=== PATIENT | male | born 1995 | race Caucasian/White ===

== ENCOUNTER 2018-09-21 08:12 | Emergency (ER) | payer BC ==
[~2018-09-21] VITALS: Ht 185.4 cm; Wt 113.4 kg
[2018-09-21 08:16] VITALS: BP 123/67
[2018-09-21] MEDS ORDERED: AMOX875T PO (08:26)
[2018-09-21] MEDS ORDERED: PRED50TA PO (08:26)
--- NOTE | 2018-09-21 08:26 | PHYS DOC ---
Past Medical History Past Medical History: No Pertinent History Past Surgical History: No Surgical History Additional Information: 3-4 cigarettes daily Alcohol Use: None Drug Use: Marijuana Adult General Chief Complaint Chief Complaint: GENERALIZED BODY ACHES HPI HPI Patient is a 22 year old male who presents with sore throat, body aches, subjective fevers, symptoms began 3 days ago. Patient denies any cough or congestion. He states his tonsils are swollen and have pus pockets. Review of Systems Review of Systems Constitutional: Denies fever or chills [] Eyes: Denies change in visual acuity, redness, or eye pain [] HENT: Reports sore throat, enlarged tonsils with possible pus. Denies nasal congestion Respiratory: Denies cough or shortness of breath [] Cardiovascular: No additional information not addressed in HPI [] GI: Denies abdominal pain, nausea, vomiting, bloody stools or diarrhea [] : Denies dysuria or hematuria [] Musculoskeletal: Denies back pain or joint pain [] Integument: Denies rash or skin lesions [] Neurologic: Denies headache, focal weakness or sensory changes [] All other systems were reviewed and found to be within normal limits, except as documented in this note. Physical Exam Physical Exam Constitutional: Well developed, well nourished, no acute distress, non-toxic appearance. [] HENT: Normocephalic, atraumatic, bilateral external ears normal, oropharynx moist, no oral exudates, nose normal. [] +2 tonsils with mild erythema, midline, mild exudate bilaterally. Airway is open. +2 anterior cervical adenopathy Eyes: PERRLA, EOMI, conjunctiva normal, no discharge. [] Neck: Normal range of motion, no tenderness, supple, no stridor. [] Cardiovascular:Heart rate regular rhythm, no murmur [] Lungs & Thorax: Bilateral breath sounds clear to auscultation [] Abdomen: Bowel sounds normal, soft, no tenderness, no masses, no pulsatile masses. [] Skin: Warm, dry, no erythema, no rash. [] Back: No tenderness, no CVA tenderness. [] Extremities: No tenderness, no cyanosis, no clubbing, ROM intact, no edema. [] Neurologic: Alert and oriented X 3, normal motor function, normal sensory function, no focal deficits noted. [] Psychologic: Affect normal, judgement normal, mood normal. [] EKG EKG [] Radiology/Procedures Radiology/Procedures [] Course & Med Decision Making Course & Med Decision Making Pertinent Labs and Imaging studies reviewed. (See chart for details) Patient has acute tonsillitis. Temperature 99.2. Discharged with amoxicillin and prednisone and instructed to take Tylenol Motrin for pain or fever. Saltwater gargles recommended. Provided return precautions, discharged in stable condition. Dragon Disclaimer Dragon Disclaimer This electronic medical record was generated, in whole or in part, using a voice recognition dictation system. Departure Departure Impression: Primary Impression: Acute tonsillitis Additional Impression: Fever Disposition: HOME, SELF-CARE Condition: STABLE Referrals: ZANE THOMAS MD follow up in 1-2 weeks Patient Instructions: Fever, Adult, Tonsillitis Additional Instructions: You have acute tonsillitis. Ensure you complete your antibiotics. Take Tylenol every 4 hours and Motrin 6 hours as needed for febrile pain. Use saltwater gargles as needed for sore throat. Follow-up with your doctor in 1-2 weeks, come back to the ED at any point symptoms worsen. Scripts Prednisone (PREDNISONE) 50 Mg Tablet 1 TAB PO DAILY, #5 TAB Prov: STARLA COX APRN 09/21/18 Amoxicillin (AMOXICILLIN) 875 Mg Tablet 1 TAB PO BID, #20 TAB Prov: STARLA COX APRN 09/21/18 Problem Qualifiers Primary Impression: Acute tonsillitis Pharyngitis/tonsillitis etiology: unspecified etiology Qualified Codes: J03.90 - Acute tonsillitis, unspecified Additional Impression: Fever Fever type: unspecified Qualified Codes: R50.9 - Fever, unspecified STARLA COX APRN Sep 21, 2018 08:26
== END 2018-09-21 08:36 | disposition home or self-care (01) ==
LOC: ER 08:12
DX: J03.90 Acute tonsillitis, unspecified (principal); R50.9 Fever, unspecified; M79.18 Myalgia, other site; F17.210 Nicotine dependence, cigarettes, uncomplicated
CPT/HCPCS: 99283

== ENCOUNTER 2019-03-14 16:37 | Emergency (ER) | payer BC ==
[~2019-03-14] VITALS: Ht 185.4 cm; Wt 108.9 kg
[~2019-03-14 16:37] MED LIST: AMOX875T PO; PRED50TA PO
[2019-03-14] MEDS ORDERED: IV NORMAL SALINE 1000ML BAG 1,000 ML IV ONE (17:00)
--- NOTE | 2019-03-14 17:02 | PHYS DOC ---
Past Medical History Past Medical History: No Pertinent History (STARLA COX APRN) Past Surgical History: No Surgical History (STARLA COX APRN) Alcohol Use: None Drug Use: Marijuana (STARLA COX APRN) Adult General Chief Complaint Chief Complaint: ABDOMINAL PAIN HPI HPI Patient is a 23 year old male with no significant medical history who presents to the ED today complaining of a sharp 4 out of 10 epigastric abdominal pain radiating to the right upper quadrant with nausea vomiting and diarrhea that began yesterday. Patient states that symptoms are worse after eating. Denies anything specifically relieving the pain. (STARLA COX APRN) Review of Systems Review of Systems Constitutional: Denies fever or chills [] Eyes: Denies change in visual acuity, redness, or eye pain [] HENT: Denies nasal congestion or sore throat [] Respiratory: Denies cough or shortness of breath [] Cardiovascular: No additional information not addressed in HPI [] GI: Reports right upper quadrant abdominal pain with nausea vomiting and diarrhea : Denies dysuria or hematuria [] Musculoskeletal: Denies back pain or joint pain [] Integument: Denies rash or skin lesions [] Neurologic: Denies headache, focal weakness or sensory changes [] All other systems were reviewed and found to be within normal limits, except as documented in this note. (STARLA COX APRN) Current Medications Current Medications Current Medications Medications (Trade) Dose Ordered Sig/Sherri Start Time Stop Time Status Last Admin Dose Admin Famotidine (Pepcid Vial) 20 mg 1X ONCE 03/14/19 17:30 03/14/19 17:31 DC 03/14/19 17:32 20 MG Ketorolac Tromethamine (Toradol 30mg Vial) 30 mg 1X ONCE 03/14/19 17:30 03/14/19 17:31 DC 03/14/19 17:32 30 MG Sodium Chloride 1,000 ml @ 1,000 mls/hr 1X ONCE 03/14/19 17:00 03/14/19 17:59 DC 03/14/19 17:32 1,000 MLS/HR (FELIZ BERTRAND DO) Allergies Allergies Allergies Coded Allergies Type Severity Reaction Last Updated Verified No Known Drug Allergies 09/21/18 No (FELIZ BERTRAND DO) Physical Exam Physical Exam Constitutional: Well developed, well nourished, no acute distress, non-toxic appearance. [] HENT: Normocephalic, atraumatic, bilateral external ears normal, oropharynx moist, no oral exudates, nose normal. [] Eyes: PERRLA, EOMI, conjunctiva normal, no discharge. [] Neck: Normal range of motion, no tenderness, supple, no stridor. [] Cardiovascular:Heart rate regular rhythm, no murmur [] Lungs & Thorax: Bilateral breath sounds clear to auscultation [] Abdomen: Bowel sounds normal, soft, slight tenderness on palpation of the epig astric region as well as the right upper quadrant with no obvious May sign, no right lower quadrant tenderness, negative psoas sign, negative obturator sign no guarding, no rebound tenderness no masses, no pulsatile masses. [] Skin: Warm, dry, no erythema, no rash. [] Back: No tenderness, no CVA tenderness. [] Extremities: No tenderness, no cyanosis, no clubbing, ROM intact, no edema. [] Neurologic: Alert and oriented X 3, normal motor function, normal sensory function, no focal deficits noted. [] Psychologic: Affect normal, judgement normal, mood normal. [] (STARLA COX APRN) Current Patient Data Vital Signs Vital Signs Date Time Temp Pulse Resp B/P (MAP) Pulse Ox O2 Delivery O2 Flow Rate FiO2 03/14/19 19:00 67 20 105/56 (72) 98 Room Air 03/14/19 16:50 98.2 98.2 (BERTRAND,FELIZ R DO) Lab Values Laboratory Tests Test 03/14/19 16:53 03/14/19 17:10 Urine Collection Type Unknown Urine Color Yellow Urine Clarity Clear Urine pH 7.5 Urine Specific [place] 1.020 Urine Protein Negative mg/dL (NEG-TRACE) Urine Glucose (UA) Negative mg/dL (NEG) Urine Ketones (Stick) Negative mg/dL (NEG) Urine Blood Negative (NEG) Urine Nitrite Negative (NEG) Urine Bilirubin Negative (NEG) Urine Urobilinogen Dipstick 0.2 mg/dL (0.2 mg/dL) Urine Leukocyte Esterase Small (NEG) Urine RBC 0 /HPF (0-2) Urine WBC 5-10 /HPF (0-4) Urine Squamous Epithelial Cells Occ /LPF Urine Bacteria 0 /HPF (0-FEW) Urine Mucus Slight /LPF Urine Opiates Screen Neg (NEG) Urine Methadone Screen Neg (NEG) Urine Barbiturates Neg (NEG) Urine Phencyclidine Screen Neg (NEG) Urine Amphetamine/Methamphetamine Neg (NEG) Urine Benzodiazepines Screen Neg (NEG) Urine Cocaine Screen Neg (NEG) Urine Cannabinoids Screen Pos (NEG) Urine Ethyl Alcohol Neg (NEG) White Blood Count 5.2 x10^3/uL (4.0-11.0) Red Blood Count 5.09 x10^6/uL (4.30-5.70) Hemoglobin 15.0 g/dL (13.0-17.5) Hematocrit 43.1 % (39.0-53.0) Mean Corpuscular Volume 85 fL (79-100) Mean Corpuscular Hemoglobin 30 pg (25-35) Mean Corpuscular Hemoglobin Concent 35 g/dL (31-37) Red Cell Distribution Width 13.7 % (11.5-14.5) Platelet Count 248 x10^3/uL (140-400) Neutrophils (%) (Auto) 56 % (31-73) Lymphocytes (%) (Auto) 32 % (24-48) Monocytes (%) (Auto) 8 % (0-9) Eosinophils (%) (Auto) 3 % (0-3) Basophils (%) (Auto) 1 % (0-3) Neutrophils # (Auto) 2.9 x10^3/uL (1.8-7.7) Lymphocytes # (Auto) 1.7 x10^3/uL (1.0-4.8) Monocytes # (Auto) 0.4 x10^3/uL (0.0-1.1) Eosinophils # (Auto) 0.1 x10^3/uL (0.0-0.7) Basophils # (Auto) 0.0 x10^3/uL (0.0-0.2) Sodium Level 144 mmol/L (136-145) Potassium Level 3.7 mmol/L (3.5-5.1) Chloride Level 105 mmol/L (98-107) Carbon Dioxide Level 29 mmol/L (21-32) Anion Gap 10 (6-14) Blood Urea Nitrogen 14 mg/dL (8-26) Creatinine 0.9 mg/dL (0.7-1.3) Estimated GFR (Cockcroft-Gault) 106.5 BUN/Creatinine Ratio 16 (6-20) Glucose Level 112 mg/dL (70-99) H Calcium Level 9.5 mg/dL (8.5-10.1) Total Bilirubin 0.2 mg/dL (0.2-1.0) Aspartate Amino Transferase (AST) 15 U/L (15-37) Alanine Aminotransferase (ALT) 22 U/L (16-63) Alkaline Phosphatase 74 U/L (46-116) Total Protein 7.6 g/dL (6.4-8.2) Albumin 4.0 g/dL (3.4-5.0) Albumin/Globulin Ratio 1.1 (1.0-1.7) Lipase 73 U/L (73-393) Ethyl Alcohol Level < 10 mg/dL (0-10) Laboratory Tests 03/14/19 17:10 Laboratory Tests 03/14/19 17:10 (FELIZ BERTRAND DO) Lab Values Laboratory Tests Test 03/14/19 16:53 03/14/19 17:10 Urine Collection Type Unknown Urine Color Yellow Urine Clarity Clear Urine pH 7.5 Urine Specific [place] 1.020 Urine Protein Negative mg/dL (NEG-TRACE) Urine Glucose (UA) Negative mg/dL (NEG) Urine Ketones (Stick) Negative mg/dL (NEG) Urine Blood Negative (NEG) Urine Nitrite Negative (NEG) Urine Bilirubin Negative (NEG) Urine Urobilinogen Dipstick 0.2 mg/dL (0.2 mg/dL) Urine Leukocyte Esterase Small (NEG) Urine RBC 0 /HPF (0-2) Urine WBC 5-10 /HPF (0-4) Urine Squamous Epithelial Cells Occ /LPF Urine Bacteria 0 /HPF (0-FEW) Urine Mucus Slight /LPF Urine Opiates Screen Neg (NEG) Urine Methadone Screen Neg (NEG) Urine Barbiturates Neg (NEG) Urine Phencyclidine Screen Neg (NEG) Urine Amphetamine/Methamphetamine Neg (NEG) Urine Benzodiazepines Screen Neg (NEG) Urine Cocaine Screen Neg (NEG) Urine Cannabinoids Screen Pos (NEG) Urine Ethyl Alcohol Neg (NEG) White Blood Count 5.2 x10^3/uL (4.0-11.0) Red Blood Count 5.09 x10^6/uL (4.30-5.70) Hemoglobin 15.0 g/dL (13.0-17.5) Hematocrit 43.1 % (39.0-53.0) Mean Corpuscular Volume 85 fL (79-100) Mean Corpuscular Hemoglobin 30 pg (25-35) Mean Corpuscular Hemoglobin Concent 35 g/dL (31-37) Red Cell Distribution Width 13.7 % (11.5-14.5) Platelet Count 248 x10^3/uL (140-400) Neutrophils (%) (Auto) 56 % (31-73) Lymphocytes (%) (Auto) 32 % (24-48) Monocytes (%) (Auto) 8 % (0-9) Eosinophils (%) (Auto) 3 % (0-3) Basophils (%) (Auto) 1 % (0-3) Neutrophils # (Auto) 2.9 x10^3/uL (1.8-7.7) Lymphocytes # (Auto) 1.7 x10^3/uL (1.0-4.8) Monocytes # (Auto) 0.4 x10^3/uL (0.0-1.1) Eosinophils # (Auto) 0.1 x10^3/uL (0.0-0.7) Basophils # (Auto) 0.0 x10^3/uL (0.0-0.2) Sodium Level 144 mmol/L (136-145) Potassium Level 3.7 mmol/L (3.5-5.1) Chloride Level 105 mmol/L (98-107) Carbon Dioxide Level 29 mmol/L (21-32) Anion Gap 10 (6-14) Blood Urea Nitrogen 14 mg/dL (8-26) Creatinine 0.9 mg/dL (0.7-1.3) Estimated GFR (Cockcroft-Gault) 106.5 BUN/Creatinine Ratio 16 (6-20) Glucose Level 112 mg/dL (70-99) H Calcium Level 9.5 mg/dL (8.5-10.1) Total Bilirubin 0.2 mg/dL (0.2-1.0) Aspartate Amino Transferase (AST) 15 U/L (15-37) Alanine Aminotransferase (ALT) 22 U/L (16-63) Alkaline Phosphatase 74 U/L (46-116) Total Protein 7.6 g/dL (6.4-8.2) Albumin 4.0 g/dL (3.4-5.0) Albumin/Globulin Ratio 1.1 (1.0-1.7) Lipase 73 U/L (73-393) Ethyl Alcohol Level < 10 mg/dL (0-10) Laboratory Tests 03/14/19 17:10 Laboratory Tests 03/14/19 17:10 (STARLA COX APRN) EKG EKG [] (STARLA COX APRN) Radiology/Procedures Radiology/Procedures []PROCEDURE: ABDOMEN COMPLETE ABDOMEN COMPLETE History: Abdominal pain. Nausea vomiting. Comparison: None. Technique: Sonographic examination of the abdomen was performed and multiple grayscale and color Doppler static images were obtained. Findings: Liver is visualized and is homogeneous. The liver measures 18.7 cm. Portal flow is patent Common bile duct is normal in caliber, measuring 2.7 mm in diameter. Gallbladder wall is normal. No cholelithiasis or pericholecystic fluid. Visualized pancreas is homogeneous. The right kidney is normal in echotexture and measures 11.5 x 4.0 x 4.4 cm. The left kidney is normal in echotexture and measures 12.5 x 4.3 x 4.6 cm. No hydronephrosis. No solid renal mass or cyst. No calculus. The spleen measures 12.3 cm. Nonaneurysmal proximal and mid aorta. Distal aorta not well seen due to overlying bowel gas. IVC is patent. IMPRESSION: 1. Hepatomegaly. 2. Otherwise, unremarkable abdominal ultrasound. Electronically signed by: Castro Carrasco DO (03/14/2019 6:35 PM) [facility] [place] DICTATED and SIGNED BY: CASTRO CARRASCO DO DATE: 03/14/191834 (STARLA COX APRN) Course & Med Decision Making Course & Med Decision Making Pertinent Labs and Imaging studies reviewed. (See chart for details) This is a 23-year-old male patient presented to the ED today with right upper quadrant abdominal pain, epigastric abdominal pain, nausea vomiting and diarrhea, symptoms began yesterday. CBC, CMP lipase-no acute findings Urine analysis is noted for small amount of leukocytes with wbc's 5-10-denies any concerns for STDs, urine was sent for STD check. In the meantime he was discharged with Cipro. Abdominal ultrasound was negative for any acute findings Patient was given a liter of fluid, Zofran, Toradol, Pepcid,-feeling better, discharged to home with Zofran, dicyclomine provided GI for follow-up. Instructed to push fluids and maintain good hand hygiene. (STARLA COX APRN) Dragon Disclaimer Dragon Disclaimer This electronic medical record was generated, in whole or in part, using a voice recognition dictation system. (STARLA COX APRN) Departure Departure Impression: Primary Impression: Urinary tract infection Additional Impressions: Nausea vomiting and diarrhea Abdominal pain Disposition: HOME, SELF-CARE Condition: STABLE Referrals: NO PCP (PCP) COREY ADAM MD Follow up with your own doctor the provided doctor in 1-2 weeks Patient Instructions: Abdominal Pain, [id number], Diarrhea, Nausea and Vomiting, [id number], Urinary Tract Infection Additional Instructions: You were evaluated in the emergency room with nausea vomiting diarrhea and abdo malcolm pain. Your urine was noted to have infection we put on antibiotics. Ensure you complete them. Push fluids. Maintain good hand hygiene. Take the prescribed medications as ordered Scripts Ciprofloxacin Hcl (CIPRO) 500 Mg Tablet 1 TAB PO BID, #14 TAB Prov: STARLA COX APRN 03/14/19 Ondansetron Hcl (ZOFRAN) 4 Mg Tablet 1 TAB PO Q6HRS, #20 TAB Prov: STARLA COX APRN 03/14/19 Dicyclomine Hcl (DICYCLOMINE HCL) 20 Mg Tablet 1 TAB PO TID, #30 TAB 0 Refills Prov: STARLA COX APRN 03/14/19 Attending Signature Attending Signature I have reviewed the PA/CAN TENDER's note and plan of care. I was available for consultation as needed during the patient's visit in the emergency department. I agree with the clinical impression, plan, and disposition. (EFLIZ BERTRAND DO) Problem Qualifiers Primary Impression: Urinary tract infection Urinary tract infection type: site unspecified Hematuria presence: without hematuria Qualified Codes: N39.0 - Urinary tract infection, site not specified Additional Impressions: Abdominal pain Abdominal location: generalized Qualified Codes: R10.84 - Generalized ab dominal pain STARLA COX APRN Mar 14, 2019 17:02 FELIZ BERTRAND DO Mar 14, 2019 22:24
[2019-03-14 17:06] LABS: BILIRUBIN,URINE NEGATIVE (NEG); CLARITY,URINE CLEAR; COLOR,URINE YELLOW; NITRITE,URINE NEGATIVE (NEG); PH,URINE 7.5; PROTEIN,URINE NEGATIVE (NEG-TRACE); UROBILINOGEN,URINE 0.2 mg/dL (0.2 mg/dL)
[2019-03-14 17:10] LABS: BACTERIA,URINE 0 /HPF (0-FEW); RBC,URINE 0 /HPF (0-2); SQUAMOUS EPITHELIAL CELL,UR OCC /LPF
[2019-03-14 17:13] LABS: AMPHETAMINE/METHAMPHETAMINE NEG (NEG); BARBITURATES NEG (NEG); BENZODIAZEPINES NEG (NEG); CANNABINOIDS POS (NEG); COCAINE NEG (NEG); METHADONE NEG (NEG); OPIATES NEG (NEG); PHENCYCLIDINE NEG (NEG)
[2019-03-14 17:18] LABS: BASO % 1 % (0-3); EOS # 0.1 x10^3/uL (0.0-0.7); EOS % 3 % (0-3); HEMATOCRIT 43.1 % (39.0-53.0); LYMPH # 1.7 x10^3/uL (1.0-4.8); LYMPH % 32 % (24-48); MEAN CORPUSCULAR HEMOGLOBIN 30 pg (25-35); MEAN CORPUSCULAR HGB CONC 35 g/dL (31-37); MEAN CORPUSCULAR VOLUME 85 fL (79-100); MONO # 0.4 x10^3/uL (0.0-1.1); MONO % 8 % (0-9); NEUT # 2.9 x10^3/uL (1.8-7.7); NEUT % 56 % (31-73); PLATELET COUNT 248 x10^3/uL (140-400); RED BLOOD COUNT 5.09 x10^6/uL (4.30-5.70); RED CELL DISTRIBUTION WIDTH 13.7 % (11.5-14.5); WHITE BLOOD COUNT 5.2 x10^3/uL (4.0-11.0)
[2019-03-14 17:27] LABS: CALCIUM 9.5 mg/dL (8.5-10.1); CREATININE 0.9 mg/dL (0.7-1.3); GFR 106.5; POTASSIUM 3.7 mmol/L (3.5-5.1)
[2019-03-14] MEDS ORDERED: KETOROLAC 30 MG/ML VIAL. IV ONE (17:30)
[2019-03-14] MEDS ORDERED: FAMOTIDINE 20 MG/2 ML VIAL IVP ONE (17:30)
[2019-03-14 17:33] LABS: ALBUMIN/GLOBULIN RATIO 1.1 (1.0-1.7); TOTAL BILIRUBIN 0.2 mg/dL (0.2-1.0); TOTAL PROTEIN 7.6 g/dL (6.4-8.2)
--- NOTE | 2019-03-14 18:38 | RAD ---
ABDOMEN COMPLETE History: Abdominal pain. Nausea vomiting. Comparison: None. Technique: Sonographic examination of the abdomen was performed and multiple grayscale and color Doppler static images were obtained. Findings: Liver is visualized and is homogeneous. The liver measures 18.7 cm. Portal flow is patent Common bile duct is normal in caliber, measuring 2.7 mm in diameter. Gallbladder wall is normal. No cholelithiasis or pericholecystic fluid. Visualized pancreas is homogeneous. The right kidney is normal in echotexture and measures 11.5 x 4.0 x 4.4 cm. The left kidney is normal in echotexture and measures 12.5 x 4.3 x 4.6 cm. No hydronephrosis. No solid renal mass or cyst. No calculus. The spleen measures 12.3 cm. Nonaneurysmal proximal and mid aorta. Distal aorta not well seen due to overlying bowel gas. IVC is patent. IMPRESSION: 1. Hepatomegaly. 2. Otherwise, unremarkable abdominal ultrasound. Electronically signed by: Castro Carrasco DO (03/14/2019 6:35 PM) [facility] – [place]
[2019-03-14 19:00] VITALS: BP 105/56
[2019-03-14] MEDS ORDERED: DICY20TA3 PO (19:01)
[2019-03-14] MEDS ORDERED: CIPR500T94 PO (19:01)
[2019-03-14] MEDS ORDERED: ONDA4TAB7 PO (19:01)
== END 2019-03-14 19:17 | disposition home or self-care (01) ==
LOC: ER 16:37
DX: N39.0 Urinary tract infection, site not specified (principal); R11.2 Nausea with vomiting, unspecified; R19.7 Diarrhea, unspecified
CPT/HCPCS: 36415; 76700; 80053; 80307; 81001; 83690; 85025; 87491; 87591; 96361; 96374; 96375; 99285; G0480; J1885; J3490; J7030

== ENCOUNTER 2019-04-16 14:30 | Emergency (ER) | payer BC ==
[~2019-04-16] VITALS: Ht 185.4 cm; Wt 90.7 kg
[~2019-04-16 14:30] MED LIST changes: +CIPR500T94 PO; +DICY20TA3 PO; +ONDA4TAB7 PO
[2019-04-16 14:48] VITALS: BP 105/56
[2019-04-16] MEDS ORDERED: CEPH-264 PO (15:10)
--- NOTE | 2019-04-16 15:10 | PHYS DOC ---
Past Medical History Past Medical History: No Pertinent History Past Surgical History: No Surgical History Alcohol Use: Occasionally Drug Use: Marijuana Adult General Chief Complaint Chief Complaint: INSECT BITE HPI HPI Patient is a 23 year old male who presents with area of redness to the right lower leg that he states started 2 days ago after being bit by an insect. He states that it did improve some since yesterday. Rates his pain as 3 out of 10 in severity. Denies fever this time. Review of Systems Review of Systems Constitutional: Denies fever or chills [] Eyes: Denies change in visual acuity, redness, or eye pain [] HENT: Denies nasal congestion or sore throat [] Respiratory: Denies cough or shortness of breath [] Cardiovascular: No additional information not addressed in HPI [] GI: Denies abdominal pain, nausea, vomiting, bloody stools or diarrhea [] : Denies dysuria or hematuria [] Musculoskeletal: Denies back pain or joint pain [] Integument: Reports skin infection. Neurologic: Denies headache, focal weakness or sensory changes [] Endocrine: Denies polyuria or polydipsia [] Complete systems were reviewed and found to be within normal limits, except as documented in this note. Allergies Allergies Allergies Coded Allergies Type Severity Reaction Last Updated Verified No Known Drug Allergies 09/21/18 No Physical Exam Physical Exam Constitutional: Well developed, well nourished, no acute distress, non-toxic appearance. [] HENT: Normocephalic, atraumatic, bilateral external ears normal, oropharynx moist, no oral exudates, nose normal. [] Eyes: PERRLA, EOMI, conjunctiva normal, no discharge. [] Neck: Normal range of motion, no tenderness, supple, no stridor. [] Cardiovascular:Heart rate regular rhythm, no murmur [] Lungs & Thorax: Bilateral breath sounds clear to auscultation [] Abdomen: Bowel sounds normal, soft, no tenderness, no masses, no pulsatile masses. [] Skin: area of erythema right lower leg. Back: No tenderness, no CVA tenderness. [] Extremities: No tenderness, no cyanosis, no clubbing, ROM intact, no edema. [] Neurologic: Alert and oriented X 3, normal motor function, normal sensory function, no focal deficits noted. [] Psychologic: Affect normal, judgement normal, mood normal. [] Current Patient Data Vital Signs Vital Signs Date Time Temp Pulse Resp B/P (MAP) Pulse Ox O2 Delivery O2 Flow Rate FiO2 04/16/19 14:48 97.9 85 16 105/56 (72) 98 Room Air 97.9 EKG EKG [] Radiology/Procedures Radiology/Procedures [] Course & Med Decision Making Course & Med Decision Making Pertinent Labs and Imaging studies reviewed. (See chart for details) Discussed with patient that the infection seems to be improving on his own. Discussed how I will prescribe antibiotic and if it worsens or doesn't improve he can take the antibiotic. Dragon Disclaimer Dragon Disclaimer This electronic medical record was generated, in whole or in part, using a voice recognition dictation system. Departure Departure Impression: Primary Impression: Cellulitis and abscess of leg Disposition: HOME, SELF-CARE Condition: STABLE Referrals: NO PCP (PCP) Patient Instructions: Cellulitis Additional Instructions: Thank you for visiting [facility]. We appreciate you trusting us with your care. If any additional problems come up don't hesitate to [facility] to [facility]. Please follow up with your primary care provider so they can plan additional care if needed and know about the problem that you had. If symptoms worsen come back to the Emergency Department. Any concerning symptoms that start such as chest pain, shortness of air, weakness or numbness on one side of the body, running high fevers or any other concerning symptoms return to the ER. You have been prescribed an antibiotic today to help fight your infection. Please take all of the antibiotic as directed. If after 48 hours the infection is not improving, please return for more care. If the infection worsens, return to ER for additional care. Scripts Cephalexin (KEFLEX) 500 Mg Capsule 1 CAP PO BID for 7 Days, #14 CAP 0 Refills Prov: BLUE,FELIZ ARGUETA 04/16/19 FELIZ BLUE APRN Apr 16, 2019 15:10
== END 2019-04-16 15:26 | disposition home or self-care (01) ==
LOC: ER 14:30
DX: L02.415 Cutaneous abscess of right lower limb (principal); L03.115 Cellulitis of right lower limb
CPT/HCPCS: 99283

== ENCOUNTER 2019-04-30 19:35 | Emergency (ER) | payer BC ==
[~2019-04-30] VITALS: Ht 188 cm; Wt 104.3 kg
[~2019-04-30 19:35] MED LIST changes: +CEPH-264 PO
[2019-04-30] MEDS ORDERED: ACETAMINOPHEN 500 MG TABLET PO ONE (20:30)
[2019-04-30] MEDS ORDERED: PENICILLIN G BENZATHINE LA 2,400,000 UNIT/4 ML DISP.SYRIN. IM ONE (20:30)
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
[2019-04-30 20:55] VITALS: BP 133/56
== END 2019-04-30 20:57 | disposition home or self-care (01) ==
LOC: ER 19:35
DX: J02.0 Streptococcal pharyngitis (principal); B95.5 Unspecified streptococcus as the cause of diseases classified elsewhere
CPT/HCPCS: 36415; 87880; 96372; 99283; J0561; 87653

== ENCOUNTER 2019-05-09 19:22 | Emergency (ER) | payer BC ==
[~2019-05-09] VITALS: Ht 185.4 cm; Wt 110.7 kg
[2019-05-09 19:35] VITALS: BP 133/68
[2019-05-09] MEDS ORDERED: DIPHTH,PERTUSS(ACELL),TET TOX 0.5 ML DISP.SYRIN. VAX IM ONE (20:15)
[2019-05-09] MEDS ORDERED: LIDOCAINE 1% PF 2 ML VIAL. INJ ONE (20:15)
[2019-05-09] MEDS ORDERED: NEOMY/BACITR/POLYMYXIN OINT PACKET. TP ONE (20:15)
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
[2019-05-09] MEDS ORDERED: HYDR-2761 PO (21:52)
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
== END 2019-05-09 22:40 | disposition home or self-care (01) ==
LOC: ER 19:22
DX: S62.101A Fracture of unspecified carpal bone, right wrist, initial encounter for closed fracture (principal); S01.112A Laceration without foreign body of left eyelid and periocular area, initial encounter; F17.210 Nicotine dependence, cigarettes, uncomplicated; S00.511A Abrasion of lip, initial encounter; F12.90 Cannabis use, unspecified, uncomplicated; Z72.89 Other problems related to lifestyle; Y08.89XA Assault by other specified means, initial encounter; Y93.89 Activity, other specified; Y92.099 Unspecified place in other non-institutional residence as the place of occurrence of the external cause; Y99.8 Other external cause status
CPT/HCPCS: 12011; 29125; 73110; 90471; 90715; 99284

== ENCOUNTER 2019-05-18 17:27 | Emergency (ER) | payer BC ==
[~2019-05-18] VITALS: Ht 188 cm; Wt 113.4 kg
[~2019-05-18 17:27] MED LIST changes: +HYDR-2761 PO
[2019-05-18 17:45] VITALS: BP 144/70
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
== END 2019-05-18 18:26 | disposition home or self-care (01) ==
LOC: ER 17:27
DX: S01.112D Laceration without foreign body of left eyelid and periocular area, subsequent encounter (principal); F12.90 Cannabis use, unspecified, uncomplicated; X58.XXXD Exposure to other specified factors, subsequent encounter
CPT/HCPCS: 99281

== ENCOUNTER 2019-06-17 10:32 | Emergency (ER) | payer BC ==
[~2019-06-17] VITALS: Ht 188 cm; Wt 113.4 kg
[2019-06-17 10:45] VITALS: BP 133/69
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
== END 2019-06-17 11:04 | disposition home or self-care (01) ==
LOC: ER 10:32
DX: R19.7 Diarrhea, unspecified (principal); F12.90 Cannabis use, unspecified, uncomplicated
CPT/HCPCS: 99281

== ENCOUNTER 2020-02-05 10:33 | Emergency (ER) | payer BC ==
[~2020-02-05] VITALS: Ht 185.4 cm; Wt 111.0 kg
[2020-02-05] MEDS ORDERED: NAPROXEN 500 MG TABLET PO STA (11:38)
[2020-02-05] MEDS ORDERED: diazePAM 5 MG TABLET PO ONE (11:45)
[2020-02-05] MEDS ORDERED: HYDROcodone/APAP 5/325MG 1 TAB TABLET PO ONE (11:45)
[2020-02-05] MEDS ORDERED: METH4TAB2 PO (11:46)
[2020-02-05] MEDS ORDERED: NAPR-514 PO (11:46)
[2020-02-05] MEDS ORDERED: CYCL10TA2 PO (11:46)
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
== END 2020-02-05 11:55 | disposition home or self-care (01) ==
LOC: ER 10:33
DX: S46.811A Strain of other muscles, fascia and tendons at shoulder and upper arm level, right arm, initial encounter (principal); M54.6 Pain in thoracic spine; F17.200 Nicotine dependence, unspecified, uncomplicated; F12.90 Cannabis use, unspecified, uncomplicated; X50.0XXA Overexertion from strenuous movement or load, initial encounter; Y93.89 Activity, other specified; Y92.89 Other specified places as the place of occurrence of the external cause; Y99.8 Other external cause status
CPT/HCPCS: 99284